=== PATIENT | female | born 1945 | race Caucasian/White ===

== ENCOUNTER 2023-03-13 | Outpatient (REF) | payer MEDICARE, OTHER, SELFPAY ==
--- NOTE | ~2023-03-13 | XR_ITS ---
EXAMINATION: XR hip LT min 2V CLINICAL INFORMATION: Reason for Exam M25.552 - Pain in left hip COMPARISON: None TECHNIQUE: Two views of the hip. FINDINGS: No acute fracture or dislocation. Advanced degenerative changes of the left hip with bony remodeling of the femoral head and acetabulum and complete loss of joint space. Mild degenerative changes of the left sacroiliac joint and pubic symphysis. Calcified phleboliths in the pelvis. Vascular calcification. A 7 mm calcification adjacent to the left femoral neck possibly reflective of loose body. XR/XR hip LT min 2V IMPRESSION: 1. Advanced degenerative changes of the left hip with bony remodeling of the femoral head and acetabulum and complete loss of joint space. 2. A 7 mm calcification adjacent to the left femoral neck possibly reflective of loose body.
== END 2023-03-13 00:01 ==
LOC: HO.HOSX
PROVIDERS: Visit Provider Orthopaedic Surgery
DX: M16.12 Unilateral primary osteoarthritis, left hip (principal); Z79.899 Other long term (current) drug therapy
CPT/HCPCS: 73502; 99202

== ENCOUNTER 2023-03-13 12:07 | Outpatient (AMB) | payer MEDICARE, OTHER, SELFPAY ==
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
[2023-03-13 12:28] VITALS: BMI 35.4
== END 2023-03-13 13:24 | disposition home or self-care (01) ==
PROVIDERS: PCP Internal Medicine; Visit Provider Orthopaedic Surgery
DX: M25.552 Pain in left hip (principal); M16.12 Unilateral primary osteoarthritis, left hip
CPT/HCPCS: 99202

== ENCOUNTER 2023-06-20 08:22 | Outpatient (REF) | payer MEDICARE, OTHER, SELFPAY ==
--- NOTE | ~2023-06-20 | XR_ITS ---
EXAMINATION: XR PELVIS CLINICAL INFORMATION: Pain in left hip COMPARISON: 03/13/2023 TECHNIQUE: AP view of the pelvis. FINDINGS: There are changes of degenerative osteoarthritis in the left hip joint with narrowing of the joint space, subchondral sclerosis and cysts formation. Right hip is unremarkable. There is diffuse osteopenia. Soft tissues are normal. XR/XR pelvis 1-2V IMPRESSION: Advanced changes of degenerative osteoarthritis in the left hip joint.
== END 2023-06-20 08:23 | disposition home or self-care (01) ==
LOC: HO.HOSX 08:22
PROVIDERS: Visit Provider Orthopaedic Surgery
DX: M16.12 Unilateral primary osteoarthritis, left hip (principal)
CPT/HCPCS: 72170; 99212

== ENCOUNTER 2023-06-20 10:31 | Outpatient (AMB) | payer MEDICARE, OTHER, SELFPAY ==
[2023-06-20 10:36] VITALS: BMI 35.4
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
== END 2023-06-20 11:08 | disposition home or self-care (01) ==
PROVIDERS: PCP Internal Medicine; Visit Provider Orthopaedic Surgery
DX: M16.12 Unilateral primary osteoarthritis, left hip (principal)
CPT/HCPCS: 99212

== ENCOUNTER 2023-06-25 06:05 | Inpatient (IN) | payer MEDICARE, OTHER, SELFPAY ==
[2023-06-18 12:30] VITALS: BP 158/74; PULSE 86; RESP 16; O2SAT 98; BMI 36.7
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
[2023-06-18 15:18] LABS: MRSA Nasal PCR NEGATIVE (Negative); SA Nasal PCR NEGATIVE (Negative)
[2023-06-25] VITALS (14 sets, daily range): BP systolic 124–158; BP diastolic 56–98; PULSE 68–102; RESP 16–20; TEMP 36.1–36.8; O2SAT 92–97
--- NOTE | ~2023-06-25 | XR_ITS ---
EXAMINATION: XR PELVIS CLINICAL INFORMATION: Status post left BERE. COMPARISON: None available. TECHNIQUE: AP view of the pelvis. FINDINGS: There is total left hip replacement with prosthetic components in satisfactory alignment. Immediate postoperative changes seen. Minimal loss of right hip joint space is seen. The soft tissues are normal. XR/XR pelvis 1-2V IMPRESSION: Total left hip replacement with immediate postoperative changes noted.
--- OUTSIDE RECORDS SUMMARY | 2023-06-25 06:07 | XMS_ITS | Continuity of Care Document ---
Author Name Unknown Organization [facility] Address [address] [place] [address] [address] [place] [address]- Care Team Providers Care Security Messenger Name Role Phone Maria Elena Rincon MD Primary Care Physician [phone] Encounter [facility] Date(s): 02/16/21 - 03/18/[address] [place], [place] [address] Attending Physician: Admtr, Ar8 Admitting Physician: Admtr, Ar8 Referring Physician: Admtr, Ar8 Allergies, Adverse Reactions, Alerts Substance Reaction Severity Status ciprofloxacin Active oxybutynin Active tetanus toxoid Active Actonel Active Macrobid Active Zocor Active Flagyl Active NKA Resolved Reclast Active Medications acetaminophen 325 mg oral tablet 650 mg, 2, tablet, By Mouth, Every 4 hours, Refills 0, Maintenance, 12/10/20 15:21:00 EDT, Partial fill upon patient request if the prescription is for a schedule II opioid drug. Start Date: 12/10/20 Status: Ordered Centrum Silver By Mouth, Daily, 0 Refills, Maintenance Start Date: 03/16/10 Status: Ordered gabapentin 300 mg oral capsule 300 mg, 1, capsule, By Mouth, 3 times a day, Refills 0, Maintenance, 12/10/20 15:23:00 EDT, Partialfill upon patient request if the prescription is for a schedule II opioid drug. Start Date: 12/10/20 Status: Ordered ibuprofen 400 mg oral tablet 400 mg, 1, tablet, By Mouth, Every 6 hours, with food, # 60 tablet, 0 Refills Start Date: 12/08/08 Stop Date: 12/22/08 Status: Ordered lidocaine 5% topical film Topically, Daily, 0 Refills, Maintenance, 12/10/20 15:21:00 EDT, Patch, Partial fill upon patient request if the prescription is for a schedule II opioid drug. Start Date: 12/10/20 Status: Ordered MiraLax oral powder for reconstitution = 17 Gm, By Mouth, Daily, dissolve in water before taking, # 255 Gm, 0 Refills, Maintenance, 12/10/20 16:49:00 EDT, REC Powder, [facility], Partial fill upon patient request if the prescription is for a schedule II opioid drug., 17 Gm By... Start Date: 12/10/20 Status: Ordered Pepcid 20 mg oral tablet 1 tablet = 20 mg, By Mouth, 2 times a day, # 180 tablet, 0 Refills, Maintenance, 12/08/20 22:40:00 EDT, Tablet, Partial fill upon patient request if the prescription is for a schedule II opioid drug. Start Date: 12/08/20 Status: Ordered predniSONE 1 mg oral tablet 2 tablet = 2 mg, By Mouth, Daily, 0 Refills, Maintenance, 12/10/20 15:23:00 EDT, Tablet, Partial fill upon patient request if the prescription is for a schedule II opioid drug. Start Date: 12/10/20 Status: Ordered Robaxin-750 750 mg oral tablet 2 tablet = 1,500 mg, By Mouth, 4 times a day, # 42 tablet, 0 Refills, Maintenance, 01/04/21 10:12:00 EDT, Tablet, Partial fill upon patient request if the prescription is for a schedule II opioid drug. Start Date: 01/04/21 Stop Date: 01/11/21 Status: Ordered Social History Social History Type Response Smoking Status Former smoker, quit more than 30 days ago; Other: Quit in 2012; entered on: 02/16/21 Sex
--- OUTSIDE RECORDS SUMMARY | 2023-06-25 06:07 | XMS_ITS | Continuity of Care Document ---
Author Name Unknown Organization [facility] ter Address [address] [place] [address]- Care Team Providers Care Dry Chain Offbearer Name Role Phone Maria Elena Rincon MD Primary Care Physician [phone] Encounter [facility] Date(s): 12/04/20 - 01/13/[address] [address] Attending Physician: Maria Elena Rincon MD Admitting Physician: Maria Elena Rincon MD Referring Physician: Maria Elena Rincon MD Allergies, Adverse Reactions, Alerts Substance Reaction Severity [...] opioid drug. Start Date: 12/10/20 Status: Ordered bisacodyl 10 mg rectal suppository 1 supp = 10 mg, Rectally, Once, PRN Constipation, 0 Refills, Maintenance, 12/10/20 15:21:00 EDT, Suppository, Partial fill upon patient request if the prescription is for a schedule II opioid drug. Start Date: 12/10/20 Status: Ordered Centrum Silver By Mouth, Daily, 0 Refills, Maintenance Start Date: 03/16/10 Status: Ordered Dilaudid 2 mg oral tablet 1 tablet = 2 mg, By Mouth, Every 4 hours, PRN as needed for pain, ? dose, 0 Refills, Maintenance, 01/04/21 10:11:00 EDT, Tablet, Partial fill upon patient request if the prescription is for a schedule II opioid drug. Start Date: 01/04/21 Status: Ordered Fleet Enema 19 gm-7 gm rectal enema 1 each, Rectally, Once, PRN for constipation, # 133 mL, 0 Refills, Maintenance, 01/13/21 9:52:00 EDT, Enema, Partial fill upon patient request if the prescription is for a schedule II opioid drug. Start Date: 01/13/21 Status: Ordered gabapentin 300 mg oral capsule [...] Refills, Maintenance, 12/10/20 16:49:00 EDT, REC Powder, [facility] 3, Partial fill upon patient request if [...] Date: 01/04/21 Stop Date: 01/11/21 Status: Ordered Zantac 150 oral tablet 1 tablet = 150 mg, By Mouth, 2 times a day, 0 Refills, Maintenance Start Date: 03/16/10 Status: Ordered
--- OUTSIDE RECORDS SUMMARY | 2023-06-25 06:07 | XMS_ITS | Continuity of Care Document ---
Author Name Unknown Organization [facility] Address [address] [place] [address] [address] [place] [address]- Care Team Providers Care Powered Bridge Specialist Name Role Phone Maria Elena Rincon MD Primary Care Physician Encounter [facility] Date(s): 12/17/20 - 01/16/[address] [place] [address]- Allergies, Adverse Reactions, Alerts Substance Reaction Severity [...] Refills, Maintenance, 12/10/20 16:49:00 EDT, REC Powder, [facility] 3, Partial fill upon patient request if [...]
--- OUTSIDE RECORDS SUMMARY | 2023-06-25 06:07 | XMS_ITS | Continuity of Care Document ---
Author Name Unknown Organization [facility] Address [address] [place] [address] [address] [place] [address]- Care Team Providers Care Spiral Tube Winder Name Role Phone Maria Elena Rincon MD Primary Care Physician Encounter [facility] Date(s): 02/16/21 - 02/23/[address] [place] [address]- Attending Physician: Ayleen Antunez MD Allergies, Adverse Reactions, Alerts Substance Reaction [...] Refills, Maintenance, 12/10/20 16:49:00 EDT, REC Powder, [facility] 3, Partial fill upon patient [...] Date: 01/04/21 Stop Date: 01/11/21 Status: Ordered Vital Signs Most recent to oldest [Reference Range]: 1 Height 161 cm (02/16/21 10:43 AM) Pulse Rate [55-90 bpm] 68 bpm (02/16/21 10:43 AM) Blood Pressure [90-138/55-84 mm Hg] 163/ 68mm Hg *H* (02/16/21 10:43 AM) Temperature [96.8-100.4 DegF] 98.3 DegF (02/16/21 10:43 AM) Blood pressure sites Arm, right (02/16/21 10:43 AM) Temperature Route Temporal (02/16/21 10:43 AM) Social History Social History Type Response Smoking Status Former smoker, quit more than 30 days ago; Other: Quit in 2012; entered on: 02/16/21 Sex
--- OUTSIDE RECORDS SUMMARY | 2023-06-25 06:07 | XMS_ITS | Continuity of Care Document ---
Author Name Unknown Organization [facility] Address [address] [facility] [place] [address]- Care Team Providers Care Electrocardiograph Technician Name Role Phone Jossue Dominguez MD Primary Care Physician Encounter 11/27/22 - 12/04/22 [facility] [address], [facility] [address] [place] [address]- Attending Physician: Jossue Dominguez MD Admitting Physician: Jossue Dominguez MD Referring Physician: Jossue Dominguez MD Allergies, Adverse Reactions, Alerts No Known Allergies Medications acetaminophen 325 mg oral tablet 650 [...] Refills, Maintenance, 12/10/20 16:49:00 EDT, REC Powder, [facility] 3, Partial fill upon patient request [...] Date: 01/04/21 Stop Date: 01/11/21 Status: Ordered Results Radiology Reports * Exam Date Time Procedure Performing Provider Status 11/27/22 9:01 AM MM Digital Mammo Screening Keeley Lozano (Verified) Notes: (MM Digital Mammo Screening) Reason For Exam: ROUTINE SCREENING EXAM RESULT: MM Digital Mammo Screening PROCEDURE: MM Digital Mammo Screening INDICATION: Screening for breast cancer. No known palpable abnormalities. COMPARISON: Multiple priors TECHNIQUE: Full-field digital CC and MLO 3D tomosynthesis images of both breasts were acquired. Computer-aided detection (CAD) was utilized in the interpretation of this study. DENSITY: The breast tissue contains scattered areas of fibroglandular density. FINDINGS: No suspicious masses, suspicious microcalcifications, or areas of architectural distortion are seen in either breast to suggest malignancy. Bilateral vascular calcifications. Several partially calcified oil cysts in the LEFT breast are now seen. IMPRESSION: No mammographic evidence of malignancy. RECOMMENDATION: Routine mammographic screening BI-RADS: 2 (Benign) Lay letter mailed to patient WSN: [id number] Ordering Physician: Jossue Dominguez Dictated By: Kat Chamberlain MD, V Dictated Date/Time: 11/27/22 11:26 am Reviewed By: Kat Chamberlain MD, V Signed By: Kat Chamberlain MD, V Signed Date/Time: 11/27/22 11:26 am Transcribed By: JOYA Technical Asst Date/Time: 11/27/22 11:23 am Birads: Social History Social History Type Response Smoking Status Former smoker, quit more than 30 days ago; Other: Quit in 2012; entered on: 02/16/21 Sex MG Breast Screening * [facility] , CIS S: TRANSCRIBE Kat Chamberlain MD, V: VERIFY Event Display: Result: Authored Date: [id number] PROCEDURE: MM Digital Mammo Screening INDICATION: Screening for breast cancer. No known palpable abnormalities. COMPARISON: Multiple priors TECHNIQUE: Full-field digital CC and MLO 3D tomosynthesis images of both breasts were acquired. Computer-aided detection (CAD) was utilized in the interpretation of this study. DENSITY: The breast tissue contains scattered areas of fibroglandular density. FINDINGS: No suspicious masses, suspicious microcalcifications, or areas of architectural distortion are seen in either breast to suggest malignancy. Bilateral vascular calcifications. Several partially calcified oil cysts in the LEFT breast are now seen. IMPRESSION: No mammographic evidence of malignancy. RECOMMENDATION: Routine mammographic screening BI-RADS: 2 (Benign) Lay letter mailed to patient WSN: [id number] Ordering Physician: Jossue Dominguez Dictated By: Kat Chamberlain MD, V Dictated Date/Time: 11/27/22 11:26 am Reviewed By: Kat Chamberlain MD, V Signed By: Kat Chamberlain MD, V Signed Date/Time: 11/27/22 11:26 am Transcribed By: JOYA Technical Asst Date/Time: 11/27/22 11:23 am Birads: Patient Care team information Care Team Personnel Name: Brisa Santiago RN Position: S RN Member Role: Primary Care Nurse Name: Jossue Dominguez MD Position: [facility] Physician (General Medicine) Member Role: PCP Address: Address: [address] [place] [address]- Care Team Related Persons Name: JUDY CONTRERAS Address: home [address] [place] [address]
--- OUTSIDE RECORDS SUMMARY | 2023-06-25 06:07 | XMS_ITS | Continuity of Care Document ---
Author Name Unknown Organization [facility] Address [address] [place] [address] [address], [address] [place] [address]- Care Team Providers Care Peoplesoft Fscm Developer Name Role Phone Maria Elena Rincon MD Primary Care Physician [phone] [facility] [facility] Date(s): 01/04/21 - 01/11/21 [facility] [address] [place] [address] Drive, [address] [place] [address]- Attending Physician: Not on Staff, Attending MD Allergies, Adverse Reactions, Alerts Substance Reaction [...] opioid drug. Start Date: 01/04/21 Status: Ordered gabapentin 300 mg oral capsule [...] Refills, Maintenance, 12/10/20 16:49:00 EDT, REC Powder, [facility] 3, Partial fill upon patient request [...] Refills, Maintenance Start Date: 03/16/10 Status: Ordered Vital Signs Most recent to oldest [Reference Range]: 1 Height 161 cm (01/04/21 9:57 AM) Weight 90.9 kg (01/04/21 9:57 AM) Body Mass Index [18.5-24.99] 35.07 *>HHI* (01/04/21 9:57 AM)
--- OUTSIDE RECORDS SUMMARY | 2023-06-25 06:07 | XMS_ITS | Continuity of Care Document ---
Author Name Unknown Organization [facility] Address [address] [place] [address] [address], [address] [place] [address]- Care Team Providers Care Weaving Supervisor Name Role Phone Maria Elena Rincon MD Primary Care Physician Encounter [facility] Date(s): 01/04/21 - 02/03/21 [facility] [address] [place] [address] Drive, [address] [place] [address]- Attending Physician: Tracey Marr Admitting Physician: AdmtrTracey Referring Physician: Admtr Ar8 Allergies, Adverse Reactions, Alerts Substance Reaction Severity Status ciprofloxacin Active oxybutynin Active tetanus toxoid Active Macrobid Active Zocor Active Flagyl Active NKA Resolved Reclast Active Actonel Active Medications acetaminophen 325 mg oral tablet [...] Refills, Maintenance, 12/10/20 16:49:00 EDT, REC Powder, [facility] 3, Partial fill upon patient request [...]
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
--- OUTSIDE RECORDS SUMMARY | 2023-06-25 06:07 | XMS_ITS | Continuity of Care Document ---
Author Name Unknown Organization [facility] Address [address] [facility] [place] [address]- Care Team Providers Care Production Tech Name Role Phone Maria Elena Rincon MD Primary Care Physician Encounter 11/14/21 - 11/21/21 [facility] [address], [facility] [address] [place] [address]- Attending Physician: Maria Elena Rincon MD Admitting Physician: Maria Elena Rincon MD Referring Physician: Maria Elena Rincon MD Allergies, Adverse Reactions, Alerts No Known [...] Refills, Maintenance, 12/10/20 16:49:00 EDT, REC Powder, [facility] 3, Partial fill upon patient [...]
--- OUTSIDE RECORDS SUMMARY | 2023-06-25 06:07 | XMS_ITS | Continuity of Care Document ---
Author Name Unknown Organization [facility] Address [address] [place] [address] ve [address] [place] [address]- Care Team Providers Care Cook Cold Meat Name Role Phone Maria Elena Rincon MD Primary Care Physician [phone] Encounter [facility] [place] Date(s): 01/13/21 - 01/20/[address] [place] [address]- Attending Physician: Alfa BARRAGAN, Belén Allergies, Adverse Reactions, Alerts Substance Reaction Severity [...] Refills, Maintenance, 12/10/20 16:49:00 EDT, REC Powder, [facility] 3, Partial fill upon patient request if [...] oldest [Reference Range]: 1 Height 161 cm (01/13/21 9:48 AM) Pulse Rate [55-90 bpm] 76 bpm (01/13/21 9:48 AM) Blood Pressure [90-138/55-84 mm Hg] 142/ 62mm Hg *H* (01/13/21 9:48 AM) Temperature [96.8-100.4 DegF] 97.9 DegF (01/13/21 9:48 AM) Blood pressure sites Arm, left (01/13/21 9:48 AM) Temperature Route Temporal (01/13/21 9:48 AM)
--- OUTSIDE RECORDS SUMMARY | 2023-06-25 06:07 | XMS_ITS | Continuity of Care Document ---
Author Name Unknown Organization [facility] y Address [address] [place] [address] [address], [address] [place] [address]- Care Team Providers Care Cigar Binder Name Role Phone Maria Elena Rincon MD Primary Care Physician Encounter [facility] [place] Date(s): 12/17/20 - 01/16/21 [facility] [address] [place] [address] Drive, [address] [place] [address]- Allergies, Adverse Reactions, Alerts Substance Reaction Severity [...] Refills, Maintenance, 12/10/20 16:49:00 EDT, REC Powder, [facility] 3, Partial fill upon patient request if [...]
--- OUTSIDE RECORDS SUMMARY | 2023-06-25 06:07 | XMS_ITS | Continuity of Care Document ---
Author Name Unknown Organization [facility] ter Address [address] [place] [id number]- Care Team Providers Care Production Engineer Name Role Phone Maria Elena Rincon MD Primary Care Physician Encounter [facility] [place] Date(s): 11/13/20 - 12/23/[address] [id number] Attending Physician: Maria Elena Rincon MD Admitting [...] Refills, Maintenance, 12/10/20 16:49:00 EDT, REC Powder, [facility] 3, Partial fill upon patient request [...]
--- NOTE | 2023-06-25 06:46 | PHA.MEDREC ---
Pharmacy Consult ? Medication Reconciliation Pharmacy has completed the medication reconciliation.MED REC DONE BY NURSING REVIEWED BY PHARMACY
[2023-06-25] MEDS: Lactated Ringers 1,000 ML 100 ML IVCONT ×3 (06:56→22:37)
[2023-06-25] MEDS: HYDROmorphone HCl 0.5 MG/0.5 ML SYRINGE 0.25 MG IVPUSH ×2 (10:47→10:57)
--- NOTE | 2023-06-25 10:48 | PM.OP ---
Brief Operative Note Date of Service: 06/25/23 Pre-op diagnosis: Left hip degenerative joint disease Post-op diagnosis: same Procedure: Left total hip arthroplasty Implants: [place] hybrid total hip arthroplasty with an Accolade C cemented stem size 4 with a 127 degree neck-shaft angle, a Trident II Tritanium press-fit acetabular component with cluster hole size 54, a Biolox ceramic femoral head size 36 with a-2.5 mm neck, polyethylene liner size 36E with a 10 degree lip, cement plug size small, distal centralizer size 11 Surgeon: Thiago Zuniga MD Anesthesia: GETA Was an Streetcar Dispatcher used for this Procedure?: Yes Streetcar Dispatcher: Tere Gauthier Estimated blood loss (mL): 200 Pathology: other (Left femoral head) Condition: stable Disposition: PACU
--- NOTE | 2023-06-25 10:51 | W.PM.OPN ---
Operative Note Operative Note Date of Service: 06/25/23 Narrative: After the patient was identified as Meli Cardona and her left hip was initialed by myself the patient was brought to the operating room where general anesthesia via endotracheal tube was induced by the anesthesiologist in routine fashion. The patient was given 2 g of IV Ancef for infection prophylaxis. The patient was then gently rolled into the lateral position. An axillary roll was put into place. All bony prominences were well padded. The patient's pelvis was held securely with hip bolsters. The patient's left hip region and lower extremity were prepped and draped in sterile fashion. A #10 scalpel blade was then used to make a curvilinear incision centered over the greater trochanter. The subcutaneous tissues were dissected using electrocautery down to the fascia margo. The fascia margo was then split in line with the skin incision using electrocautery. The split in the fascia margo was curved posteriorly along its cephalad aspect to help prevent injury to the innervation of the tensor fascia margo muscle. The patient's leg was gently externally rotated. A lateral Siegel approach was then taken down to the anterior joint capsule. The anterior half of the vastus lateralis was split 1 cm from its insertion and tagged with #2 Ethibond suture. The anterior 1/3 of the gluteus medius incision was then split using electrocautery and tagged with #2 Ethibond suture. An anterior capsulectomy was then performed using electrocautery. The patient's femoral head was then dislocated anteriorly using a hook and gentle traction. Soft tissues were retracted around the femoral neck. The femoral neck cut was then made using a sagittal saw 1 cm proximal to the lesser trochanter. Our attention was then directed to the acetabulum. The labrum was removed using electrocautery. Soft tissue within the cotyloid notch was removed using electrocautery and a rongeur. The femoral head measured to be a size 48 mm. Thus, reaming was begun with a 48 mm reamer. Reaming was performed at 45 degrees of abduction and 20 degrees of anteversion. Reaming was increased incrementally up to a size 54 reamer. At this point we had reached the medial wall of the acetabulum. The acetabulum was irrigated with copious amounts of normal saline solution via pulse lavage. The final size 54 acetabular component was then impacted into place with 45 degrees of abduction and 20 degrees of anteversion. Two cancellous screws were then placed into the superior position. The anterior screw measured 30 mm in length and the posterior screw measured 25 mm in length. The acetabular component was irrigated with copious amounts of normal saline solution via pulse lavage. The polyethylene liner was then impacted into place with the lip in the posterior-superior position. A small sponge was placed into the acetabular component to protect it during preparation of the proximal femur. The patient's leg was then placed into a sterile pouch along the anterior aspect of the surgical suite table. Soft tissues were retracted around the proximal femur. A box cutting osteotome was used to make a groove in the medial aspect of the greater trochanter. Broaching was begun with a size 0 press-fit broach. Broaching was increased up to a size 4 cemented broach. The size 4 broach fit well. The broach was removed. The distal centralizer was measured to be a size 11. A small cement plug was put into place. The intramedullary canal was irrigated with copious amounts of normal saline solution via pulse lavage while the cement was mixed. Once the cement reached a doughy state it was pressurized into the intramedullary canal. The final implant was put into place. Once the cement had hardened a trial size 36 head with a -2.5 mm neck was put into place. The hip was reduced. Leg lengths were clinically equal. The hip was taken through a full range of motion. There was no instability. The hip was once again dislocated and the patient's leg was placed into the sterile pouch. The trial head was removed. The wound was irrigated with copious amounts of normal saline solution via pulse lavage. The final head was impacted in the place. Leg lengths were clinically equal. Hip was taken through a full range of motion. There was no instability. The patient's leg was then placed onto a well-padded Dorsey stand. The wound was once again irrigated. The vastus lateralis and tensor fascia margo tendons were repaired with #2 Ethibond ilomat-ek-kpjea interrupted suture. The wound was once again irrigated. The fascia margo was closed with #2 Ethibond wepgoj-bl-jwwgl interrupted suture as well as #1 Vicryl ibnofc-oc-wlefb interrupted suture. The wound was once again irrigated. The subcutaneous tissues were closed with 0 Vicryl and 2-0 Vicryl interrupted suture. The skin was closed with skin jovanni. Dry sterile dressing was placed over the incision. The patient was gently rolled into the supine position. The patient was awoken and extubated in the operating room. The patient was transferred to the recovery room in stable condition.
[2023-06-25] MEDS: oxyCODONE HCl Immed Release 5 MG TABLET PO (10:55)
--- NOTE | 2023-06-25 11:57 | PHA.MEDREC ---
Pharmacy Consult ? Medication Reconciliation Pharmacy has reviewed the medication reconciliation based on pharmacy claim history.
[2023-06-25] MEDS: oxyCODONE HCl ER 10 MG TAB.ER.12H PO ×2 (12:23→20:33)
[2023-06-25] MEDS: oxyCODONE HCl Immed Release 5 MG TABLET 10 MG PO ×2 (12:23→17:31)
[2023-06-25] MEDS: Famotidine 20 MG TABLET PO ×2 (12:23→20:33)
[2023-06-25] MEDS: Gabapentin 300 MG CAPSULE PO ×3 (12:23→20:33)
[2023-06-25] MEDS: Cholecalciferol (Vitamin D3) 25 MCG TABLET 50 MCG PO (12:23)
[2023-06-25] MEDS: Ascorbic Acid 500 MG TABLET 1000 MG PO (12:23)
[2023-06-25] MEDS: Celecoxib 200 MG CAPSULE PO ×2 (12:23→20:34)
[2023-06-25] MEDS: Docusate Sodium 100 MG CAPSULE PO ×2 (12:23→20:33)
[2023-06-25] MEDS: Multivitamin TABLET 1 TAB PO (12:24)
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
[2023-06-25] MEDS: ceFAZolin Sodium/Dextrose,Iso 2 GM/50 ML PIGGYBACK IV ×2 (15:21→23:32)
[2023-06-25] MEDS: Acetaminophen 325 MG TABLET 650 MG PO (17:32)
[2023-06-25] MEDS: Aspirin 325 MG TABLET PO (20:32)
[2023-06-25] MEDS: diphenhydrAMINE HCL 25 MG CAPSULE 50 MG PO (20:34)
[2023-06-26] MEDS: oxyCODONE HCl Immed Release 5 MG TABLET 10 MG PO (03:42)
[2023-06-26 06:37] LABS: MANUAL DIFF FLAG NO
[2023-06-26 06:44] LABS: Basophils Percent Auto 0.2 % (0-2); Hematocrit 31.7 % (37.0-47.0); Hemoglobin 10.1 g/dl (12.0-16.0); Imm Gran Abs Auto 0.03 X10*3/uL (0.00-0.03); Imm Gran Pct Auto 0.3 % (0.0-0.4); Lymphocytes Absolute Auto 1.3 X10*3/uL (1.2-4.9); Lymphocytes Percent Auto 14.2 % (20-40); Mean Corpuscular HGB Conc 31.9 g/dl (31.0-35.0); Mean Corpuscular Hemoglobin 28.2 pg (27.0-33.0); Mean Corpuscular Volume 88.5 fL (80.0-98.0); Mean Platelet Volume 9.4 fL (9.4-12.3); Monocytes Absolute Auto 0.8 X10*3/uL (0.1-1.2); Monocytes Percent Auto 8.3 % (2-11); Platelet Count 200 X10*3/uL (160-400); Red Blood Count 3.58 X10*6/uL (4.20-5.50); Red Cell Distribution Width 13.9 % (11.0-16.0)
[2023-06-26 06:56] LABS: Anion Gap 11 (12-20); Blood Urea Nitrogen 10 mg/dL (9-16); Calcium 8.6 mg/dL (8.4-10.2); Carbon Dioxide 28 mmol/L (22-29); Chloride 104 mmol/L (96-108); Creatinine Clr Calc Pharmacy 65.7; Estimated Glomerular Filt Rate > 60; Glucose Fasting 114 mg/dL (60-99); Potassium 4.2 mmol/L (3.3-5.1); Sodium 139 mmol/L (135-145)
[2023-06-26 07:21] VITALS: BP 116/76; PULSE 82; RESP 20; TEMP 36.3; O2SAT 97
[2023-06-26] MEDS: HYDROmorphone HCl 0.5 MG/0.5 ML SYRINGE IVPUSH ×3 (07:31→18:34)
[2023-06-26] MEDS: ceFAZolin Sodium/Dextrose,Iso 2 GM/50 ML PIGGYBACK IV (07:32)
[2023-06-26] MEDS: Lactated Ringers 1,000 ML 100 ML IVCONT (07:33)
[2023-06-26] MEDS: Gabapentin 300 MG CAPSULE PO ×3 (08:29→20:05)
[2023-06-26] MEDS: oxyCODONE HCl ER 10 MG TAB.ER.12H PO ×2 (08:29→20:05)
[2023-06-26] MEDS: Multivitamin TABLET 1 TAB PO (08:29)
[2023-06-26] MEDS: Famotidine 20 MG TABLET PO ×2 (08:29→20:04)
[2023-06-26] MEDS: Aspirin 325 MG TABLET PO ×2 (08:29→20:04)
[2023-06-26] MEDS: Ascorbic Acid 500 MG TABLET 1000 MG PO (08:29)
[2023-06-26] MEDS: Cholecalciferol (Vitamin D3) 25 MCG TABLET 50 MCG PO (08:29)
[2023-06-26 08:30] VITALS: BP 116/76; PULSE 82; O2SAT 97
[2023-06-26] MEDS: Docusate Sodium 100 MG CAPSULE PO (08:30)
[2023-06-26] MEDS: Celecoxib 200 MG CAPSULE PO ×2 (08:30→20:04)
--- NOTE | 2023-06-26 09:29 | HO.POSTANES ---
Post Anesthesia Evaluation Post Anesthesia Evaluation Date of Service: 06/26/23 Vital Signs: Vital Signs Temp Pulse Resp BP Pulse Ox O2 Del Method 06/26/23 08:30 82 116/76 97 06/26/23 07:21 97.3 F 82 20 116/76 97 Room Air 06/25/23 23:48 97.8 F 98 16 139/59 L 93 Room Air Anesthesia: General Endotracheal-GETA Mental Status: Awake Pain Control: Satisfactory Nausea/Vomiting: None Hydration: Adequate Anesthesia-Related Issues: No Anes. Related Issues
[2023-06-26] MEDS: Acetaminophen 325 MG TABLET 650 MG PO ×2 (09:44→20:07)
--- NOTE | 2023-06-26 09:50 | P.PNOP_ITS ---
Subjective Subjective Date of Service: 06/26/23 Interval history: Pod 1 s/p LT BERE no overnight events resting in bed states her pain is more tolerable this morning denies sob, cp, palpitations Physical Exam Vital Signs: Vital Signs: Last Vital Signs Temp 97.3 F 06/26/23 07:21 Pulse 82 06/26/23 08:30 Resp 20 06/26/23 07:21 BP 116/76 06/26/23 08:30 Pulse Ox 97 06/26/23 08:30 O2 Del Method Room Air 06/26/23 07:21 O2 Flow Rate 2 06/25/23 11:45 BMI result Body Mass Index 36.7 Const: General: cooperative, healthy appearing and no acute distress Resp: Effort & Inspection: normal respiratory effort and able to speak in complete sentences Cardio: Rate: regular rate Peripheral pulses: Peripheral pulses 2+ throughout GI: Palpation (GI): Soft to palpation Skin: General skin exam: no rashes or lesions noted Extrem: Other: left hip incision clean dry and intact. Manan intact. No erythema or effusion. Calf supple nontender. Neurovascularly intact. Procedures Date of Service Date of Service: 06/26/23 Progress Note: A&P Assessment and plan (1) History of total left hip replacement: Status: Acute Assessment and Plan: * Continue pain mgmnt * Begin Aspirin for dvt ppx * begin PT for LT BERE * Dispo planning-Pending PT eval, pain mgmnt Need for continued inpatient stay: PT eval home vs rehab placement Time Spent With Patient Time: Total time managing care of this patient today ____ minutes. Quality Stroke Does the patient have a stroke diagnosis?: No VTE Prior VTE?: No VTE Risk Level:: Surgical - very high VTE Device Contraindication: N/A - Device Ordered VTE Drug Contraindication: N/A - Med Ordered
--- NOTE | 2023-06-26 12:11 | MHC.CM.PN ---
Interview conducted w/Pt and ; Pt lives w/ in their home, no prior services, owns RW, cane and BSC. Pt still drives where she needs to go. Her bathroom and bedroom are both upstairs on second floor. Pt lives in [facility]; will have to locate VNA that services this area. D/C plan is home w/ via , w/in-home PT. CM to follow.
[2023-06-26] MEDS: ondansetron HCL 4 MG/2 ML VIAL IVPUSH (12:50)
[2023-06-26 13:14] VITALS: BP 116/76; PULSE 82; O2SAT 97
[2023-06-26 15:28] VITALS: BP 127/61; PULSE 88; RESP 20; TEMP 36.2; O2SAT 95
[2023-06-26 19:35] VITALS: BP 131/60; PULSE 90; RESP 18; TEMP 36.4; O2SAT 94
[2023-06-26] MEDS: diphenhydrAMINE HCL 25 MG CAPSULE 50 MG PO (20:04)
[2023-06-26] MEDS: 0.9 % Sodium Chloride Flush 3 ML SYRINGE IVFLUSH (20:07)
[2023-06-27 03:46] VITALS: BP 118/55; PULSE 81; RESP 17; TEMP 37.1; O2SAT 95
[2023-06-27 06:44] LABS: MANUAL DIFF FLAG NO
[2023-06-27 06:48] LABS: Basophils Absolute Auto 0.1 X10*3/uL (0.0-0.2); Basophils Percent Auto 0.6 % (0-2); Eosinophils Absolute Auto 0.2 X10*3/uL (0.0-0.4); Eosinophils Percent Auto 1.9 % (0-4); Hematocrit 31.1 % (37.0-47.0); Hemoglobin 9.8 g/dl (12.0-16.0); Imm Gran Abs Auto 0.03 X10*3/uL (0.00-0.03); Imm Gran Pct Auto 0.4 % (0.0-0.4); Lymphocytes Absolute Auto 1.3 X10*3/uL (1.2-4.9); Lymphocytes Percent Auto 14.9 % (20-40); Mean Corpuscular HGB Conc 31.5 g/dl (31.0-35.0); Mean Corpuscular Hemoglobin 28.8 pg (27.0-33.0); Mean Corpuscular Volume 91.5 fL (80.0-98.0); Mean Platelet Volume 9.6 fL (9.4-12.3); Monocytes Absolute Auto 0.8 X10*3/uL (0.1-1.2); Monocytes Percent Auto 9.4 % (2-11); Neutrophils Absolute Auto 6.2 x10*3/uL (2.0-8.3); Neutrophils Percent Auto 72.8 % (45-73); Platelet Count 177 X10*3/uL (160-400); Red Cell Distribution Width 14.4 % (11.0-16.0); White Blood Count 8.5 X10*3/uL (4.8-10.8)
[2023-06-27 07:01] VITALS: BP 115/56; PULSE 88; RESP 20; TEMP 37; O2SAT 95
[2023-06-27 07:06] LABS: Anion Gap 11 (12-20); Blood Urea Nitrogen 11 mg/dL (9-16); Calcium 8.7 mg/dL (8.4-10.2); Carbon Dioxide 28 mmol/L (22-29); Chloride 105 mmol/L (96-108); Creatinine Clr Calc Pharmacy 69.4; Estimated Glomerular Filt Rate > 60; Glucose Fasting 110 mg/dL (60-99); Potassium 4.1 mmol/L (3.3-5.1); Sodium 140 mmol/L (135-145)
[2023-06-27] MEDS: Acetaminophen 325 MG TABLET 650 MG PO (07:09)
[2023-06-27] MEDS: 0.9 % Sodium Chloride Flush 3 ML SYRINGE IVFLUSH (07:11)
--- NOTE | 2023-06-27 07:19 | PM.DS ---
DS: Providers Provider Date of admission: 06/25/23 06:05 Primary care physician: Jossue Benjamin MD Consults: 06/25/23 11:43 Consult to Hospitalist Routine Comment: Consulting Provider: Hospitalist Reason For Exam: Routine Medical Management DS: Diagnosis Discharge Diagnosis (1) History of total left hip replacement: Status: Acute DS: Summary Hospital Course Hospital Course: The patient underwent a successful left total hip arthroplasty, they were transferred to PACU and then to the floor to recover. During their stay, their vitals were stable, afebrile at 98.6. Labs were unremarkable, H/H 9.8/31.1. POD 1 they were started on Aspirin 325mg po bid for DVT ppx, they also received Physical Therapy services twice a day. Prior to discharge, their dressing was changed, incision clean dry and intact, new Aquacel dressing applied and the plan was to be discharged home with VNA services. Time Attestation Discharge coordination time: Less than 30 minutes Physical Exam Vital Signs: Vital Signs: Last Vital Signs Temp 98.6 F 06/27/23 07:01 Pulse 88 06/27/23 07:01 Resp 20 06/27/23 07:01 BP 115/56 L 06/27/23 07:01 Pulse Ox 95 06/27/23 07:01 O2 Del Method Room Air 06/27/23 07:01 O2 Flow Rate 2 06/25/23 11:45 BMI result Body Mass Index 36.7 DS: Data Data Completed and Pending Completed studies during hospitalization [Text1]: Pending at discharge 06/25/23 08:37 Surgical [PTH] Routine Labs on day of discharge: Laboratory Results - last 24 hr 06/27/23 06:35 WBC 8.5 RBC 3.40 L Hgb 9.8 L Hct 31.1 L MCV 91.5 MCH 28.8 MCHC 31.5 RDW 14.4 Plt Count 177 MPV 9.6 Immature Gran % (Auto) 0.4 Neut % (Auto) 72.8 Lymph % (Auto) 14.9 L [place] % (Auto) 9.4 Eos % (Auto) 1.9 Baso % (Auto) 0.6 Lymph # (Auto) 1.3 [place] # (Auto) 0.8 Eos # (Auto) 0.2 Baso # (Auto) 0.1 Abs Immat Gran (auto) 0.03 Absolute Neuts (auto) 6.2 Absolute Nucleated RBC 0.000 Nucleated RBC % (auto) 0.0 Sodium 140 Potassium 4.1 Chloride 105 Carbon Dioxide 28 Anion Gap 11 L BUN 11 Creatinine 0.71 Estim Creat Clear Calc 69.4 Estimated GFR > 60 Fasting Glucose 110 H Calcium 8.7 Discharge Plan Discharge Referrals: Jossue Benjamin MD [Primary Care Provider] - 1 Week Discharge Medications: No Action multivitamin Tablet 1 tab PO DAILY ascorbic acid (vitamin C) [Vitamin C] 1,000 mg Tablet 1,000 mg PO DAILY famotidine [Pepcid] 20 mg Tablet 20 mg PO BID diphenhydramine HCl [Benadryl] 25 mg Capsule 50 mg PO BEDTIME Patient Comments: takes every night vitamin B complex Tablet 1 tab PO DAILY cranberry 500 mg Capsule 500 mg PO DAILY Rx Instructions: administer with meals Lutein Vison Formula Capsule 1 cap PO DAILY cholecalciferol (vitamin D3) [Vitamin D3] 50 mcg (2,000 unit) Tablet 50 mcg PO DAILY Tumersaid [phone] mg Tablet 1 tab PO DAILY oxycodone 5 mg tablet 5 mg PO 5XD PRN (Reason: Pain) gabapentin 300 mg capsule 300 mg PO TID diclofenac sodium 1 % gel 2 g topical QID PRN (Reason: Pain) Rx Instructions: apply to single elbow, wrist or hand; for hand includes palm/fingers/back of hand
--- NOTE | 2023-06-27 07:49 | P.PNOP_ITS ---
Subjective Subjective Date of Service: 06/27/23 Interval history: Pod 2 s/p LT BERE no overnight events resting in bed states her pain is more tolerable this morning denies sob, cp, palpitations Physical Exam Vital Signs: Vital Signs: Last Vital Signs Temp 98.6 F 06/27/23 07:01 Pulse 88 06/27/23 07:01 Resp 20 06/27/23 07:01 BP 115/56 L 06/27/23 07:01 Pulse Ox 95 06/27/23 07:01 O2 Del Method Room Air 06/27/23 07:01 O2 Flow Rate 2 06/25/23 11:45 BMI result Body Mass Index 36.7 Const: General: cooperative, healthy appearing and no acute distress Resp: Effort & Inspection: normal respiratory effort and able to speak in complete sentences Cardio: Rate: regular rate Peripheral pulses: Peripheral pulses 2+ throughout GI: Palpation (GI): Soft to palpation Skin: General skin exam: no rashes or lesions noted Extrem: Other: left hip incision clean dry and intact. [place] intact. No erythema or effusion. Calf supple nontender. Neurovascularly intact. Procedures Date of Service Date of Service: 06/27/23 Progress Note: A&P Assessment and plan (1) History of total left hip replacement: Status: Acute Assessment and Plan: * Continue pain mgmnt * Begin Aspirin for dvt ppx * begin PT for LT BERE * Dispo planning-Pending PT eval, pain mgmnt Need for continued inpatient stay: PT eval home vs rehab placement, Pain management (2) Arthritis of left hip: Status: Acute Time Spent With Patient Time: Total time managing care of this patient today ____ minutes. Quality Stroke Does the patient have a stroke diagnosis?: No VTE Prior VTE?: No VTE Risk Level:: Surgical - very high VTE Device Contraindication: N/A - Device Ordered VTE Drug Contraindication: N/A - Med Ordered
[2023-06-27] MEDS: Ascorbic Acid 500 MG TABLET 1000 MG PO (08:03)
[2023-06-27] MEDS: oxyCODONE HCl ER 10 MG TAB.ER.12H PO (08:03)
[2023-06-27] MEDS: Celecoxib 200 MG CAPSULE PO (08:03)
[2023-06-27] MEDS: Famotidine 20 MG TABLET PO (08:03)
[2023-06-27] MEDS: Gabapentin 300 MG CAPSULE PO (08:04)
[2023-06-27] MEDS: Aspirin 325 MG TABLET PO (08:04)
[2023-06-27] MEDS: Cholecalciferol (Vitamin D3) 25 MCG TABLET 50 MCG PO (08:04)
[2023-06-27] MEDS: Multivitamin TABLET 1 TAB PO (08:04)
[2023-06-27 09:57] VITALS: BP 115/56; PULSE 88; O2SAT 95
--- NOTE | 2023-06-27 10:15 | P.DS_ITS ---
DS: Providers Provider Date of Service: 06/27/23 Date of admission: 06/25/23 06:05 Primary care physician: Jossue Benjamin MD Consults: 06/25/23 11:43 Consult to Hospitalist Routine Comment: Consulting Provider: Hospitalist Reason For Exam: Routine Medical Management DS: Diagnosis Discharge Diagnosis (1) History of total left hip replacement: Status: Acute (2) Arthritis of left hip: Status: Acute DS: Summary Hospital Course Hospital Course: The patient underwent a successful left total hip arthroplasty, they were transferred to PACU and then to the floor to recover. During their stay, their vitals were stable, afebrile at 98.6. Labs were unremarkable, H/H 9.8/31.1. POD 0 they were started on Aspirin 325mg po bid for DVT ppx, they also received Physical Therapy services twice a day. Prior to discharge, their dressing was clean dry and intact, new Aquacel dressing applied and the plan was to be discharged home with VNA services. Time Attestation Discharge coordination time: Less than 30 minutes Quality: Safe Use of Opioids Does Pt have an Active Cancer Diagnosis on the Problem List?: No Quality: Stroke Does the patient have a stroke diagnosis?: No Physical Exam Vital Signs: Vital Signs: Last Vital Signs Temp 98.6 F 06/27/23 07:01 Pulse 88 06/27/23 09:57 Resp 20 06/27/23 07:01 BP 115/56 L 06/27/23 09:57 Pulse Ox 95 06/27/23 09:57 O2 Del Method Room Air 06/27/23 07:01 O2 Flow Rate 2 06/25/23 11:45 BMI result Body Mass Index 36.7 Const: General: cooperative, healthy appearing and no acute distress Resp: Effort & Inspection: normal respiratory effort and able to speak in complete sentences Cardio: Rate: regular rate Peripheral pulses: Peripheral pulses 2+ throughout GI: Palpation (GI): Soft to palpation Skin: General skin exam: no rashes or lesions noted Lesions: no lesions Rashes: no rashes Extrem: Other: left hip incision clean dry and intact. [place] intact. No erythema or effusion. Calf supple nontender. Neurovascularly intact. DS: Data Data Completed and Pending Completed studies during hospitalization [Text1]: Pending at discharge 06/25/23 08:37 Surgical [PTH] Routine Labs on day of discharge: Laboratory Results - last 24 hr 06/27/23 06:35 WBC 8.5 RBC 3.40 L Hgb 9.8 L Hct 31.1 L MCV 91.5 MCH 28.8 MCHC 31.5 RDW 14.4 Plt Count 177 MPV 9.6 Immature Gran % (Auto) 0.4 Neut % (Auto) 72.8 Lymph % (Auto) 14.9 L [place] % (Auto) 9.4 Eos % (Auto) 1.9 Baso % (Auto) 0.6 Lymph # (Auto) 1.3 [place] # (Auto) 0.8 Eos # (Auto) 0.2 Baso # (Auto) 0.1 Abs Immat Gran (auto) 0.03 Absolute Neuts (auto) 6.2 Absolute Nucleated RBC 0.000 Nucleated RBC % (auto) 0.0 Sodium 140 Potassium 4.1 Chloride 105 Carbon Dioxide 28 Anion Gap 11 L BUN 11 Creatinine 0.71 Estim Creat Clear Calc 69.4 Estimated GFR > 60 Fasting Glucose 110 H Calcium 8.7 Discharge Plan Discharge Anticipated Discharge Date/Time: 06/27/23 10:11 Patient Disposition: Home Health Service Discharge Diagnosis: s/p LTHA Referrals: Tere Gauthier PA-C [Physician Technology Project Manager] - 07/12/23 1:15 pm Discharge Medications: New celecoxib 200 mg Capsule 200 mg PO BID 30 Days Qty: 60 0RF acetaminophen 325 mg Tablet 650 mg PO Q6H PRN (Reason: Pain, Mild (Pain Scale 1-3)) 30 Days Qty: 240 0RF aspirin 325 mg Tablet 325 mg PO Q12H 42 Days Qty: 84 0RF docusate sodium 100 mg Capsule 100 mg PO BID 30 Days Qty: 60 0RF oxycodone 5 mg Tablet 5 mg PO Q4H PRN (Reason: Pain, Moderate(Pain Scale 4-6)) 7 Days Qty: 42 0RF Rx Instructions: Partial Fill upon patient request. Continued multivitamin Tablet 1 tab PO DAILY ascorbic acid (vitamin C) [Vitamin C] 1,000 mg Tablet 1,000 mg PO DAILY famotidine [Pepcid] 20 mg Tablet 20 mg PO BID diphenhydramine HCl [Benadryl] 25 mg Capsule 50 mg PO BEDTIME Patient Comments: takes every night vitamin B complex Tablet 1 tab PO DAILY cranberry 500 mg Capsule 500 mg PO DAILY Rx Instructions: administer with meals vit C-vit Q-swzmwa-tmohjfbk Capsule 1 cap PO DAILY cholecalciferol (vitamin D3) [Vitamin D3] 50 mcg (2,000 unit) Tablet 50 mcg PO DAILY [place] [id number] mg Tablet 1 tab PO DAILY oxycodone 5 mg tablet 5 mg PO 5XD PRN (Reason: Pain) gabapentin 300 mg capsule 300 mg PO TID diclofenac sodium 1 % gel 2 g topical QID PRN (Reason: Pain) Rx Instructions: apply to single elbow, wrist or hand; for hand includes palm/fingers/back of hand Discharge Orders: Discharge Order (Routine); Ordered 06/27/23 Ordered By: Tere Gauthier Diet: Advance to usual diet Activity on Discharge: Use cane or walker Stand Alone Forms: Patient Portal Discharge page Care Plan Goals: Restore fxn to left hip Health Concerns: None Plan of Treatment: Physical Therapy for total hip arthroplasty: no precautions, gait training, ROM, strength Limit stair climbing No showering, no tub bath-keep dressing clean, dry and intact No driving x6 weeks Continue Aspirin 325mg tabs twice a day x 4 weeks Follow up with [facility] in 2 weeks Assessment: stable for d/c
--- NOTE | 2023-06-27 10:17 | P.F2F_ITS ---
Service Date Service Date: 06/27/23 Encounter Date of encounter: 06/27/23 Reasons for Services Signs and symptoms assessed: Pt. is considered homebound due to recent surgery. Unable to drive, poor balance, poor gait mechanics. S/p LTHA. Reason for physical therapy: home safety and mobility, therapeutic exercises, restore joint function, gait/transfer training, assess need for DME and ADL training Reason for occupational therapy: home safety and mobility, therapeutic exercises, restore joint function, gait/transfer training, assess need for DME and ADL training Homebound: Leaving the home is medically contraindicated at this time without the asist of a device and/or another person due th the listed conditions above and below. Reason homebound: unsteady gait / fall risk, leg weakness, pain with ambulation, pain with transfers and unable to drive Certification: Based on the above findings, I certify that this patient is confined to the home and needs intermittent half-way care, physical therapy and/or speech therapy, or continues to need occupational therapy. The patient is under my care, and I have initiated the establishment of the plan of care. The patient will be followed by a physician who will periodically review the plan of care. Time Spent With Patient Time: Total time managing care of this patient today ____ minutes.
--- NOTE | 2023-06-27 11:49 | MHC.CM.PN ---
Addendum entered by Sanjana Barboza 06/27/23 11:51: [facility] HAS ACCEPTED PTS REFERRAL FOR PT AND OT SERVICES CM CALLED PT ON HER CELL [phone] AND PROVIDED THE ABOVE INFORMATION Original Note: CM MET WITH PT TO INFORM HER A VNA HAD NOT YET BEEN SECURED FOR DC SHE REPORTS SHE HAS BEEN THROUGH THIS BEFORE AND WAS UNABLE TO GET ONE AT THAT TIME SHE SAYS SHE HAS A PRINT OUT OF THE EXERCISES AND WILL DO THEM ON HER OWN CM INFORMED HER SHE WOULD BE CONTACTED IF ONE WAS SECURED PTS WILL TRANSPORT HOME
== END 2023-06-27 11:37 | disposition home health service (06) | DRG 470 ==
LOC: HO.SSSA 06:06 → HO.S3 10:25
PROVIDERS: Physician Assistant; Admitting Provider Orthopaedic Surgery; PCP Internal Medicine; Visit Provider Orthopaedic Surgery
PROC: 0SRB0J9 Replacement of Left Hip Joint with Synthetic Substitute, Cemented, Open Approach (ICD-10-PCS; CPT 27130; principal; 2023-06-25 07:30)
DX: M16.12 Unilateral primary osteoarthritis, left hip (principal); K21.9 Gastro-esophageal reflux disease without esophagitis; M48.00 Spinal stenosis, site unspecified; R09.02 Hypoxemia; M35.3 Polymyalgia rheumatica; Z87.891 Personal history of nicotine dependence; Z79.899 Other long term (current) drug therapy
CPT/HCPCS: 27130; 36415; 72170; 80048; 85025; 86850; 86900; 86901; 87640; 87641; 88304; 88311; 97110; 97116; 97162; 97165; 97535; C1713; C1776; J0131; J0690; J1100; J1170; J1885; J2405; J2704; J3010; J3370; J7120

== ENCOUNTER → 2023-06-25 06:05 | Outpatient (BNV) | payer MEDICARE, OTHER, SELFPAY | PROVIDERS: Admitting Provider Orthopaedic Surgery; PCP Internal Medicine; Visit Provider Orthopaedic Surgery | DX: Z47.1 Aftercare following joint replacement surgery (principal); Z96.642 Presence of left artificial hip joint; M16.12 Unilateral primary osteoarthritis, left hip | CPT/HCPCS: 27130; 99024; G0180 ==

== ENCOUNTER → 2023-06-25 06:05 | Outpatient (BNV) | payer MEDICARE, OTHER, SELFPAY | PROVIDERS: Admitting Provider Orthopaedic Surgery; PCP Internal Medicine; Visit Provider Physician Assistant | DX: M16.12 Unilateral primary osteoarthritis, left hip (principal) | CPT/HCPCS: 99222 ==

== ENCOUNTER 2023-07-12 09:29 | Outpatient (REF) | payer MEDICARE, OTHER, SELFPAY ==
--- NOTE | ~2023-07-12 | XR_ITS ---
EXAMINATION: XR PELVIS CLINICAL INFORMATION: Pain and unspecified hip. COMPARISON: 06/25/2023, 06/20/2023, 03/13/2023 TECHNIQUE: 2 AP views of the pelvis. FINDINGS: The bones are diffusely demineralized. Degenerative changes in the imaged lower lumbar spine. Moderate degenerative changes noted in the bilateral sacroiliac joints. Degenerative changes in the right hip with axial and medial joint space narrowing. Redemonstration of left total hip arthroplasty. Hardware appears intact with satisfactory alignment on AP views provided. XR/XR pelvis 1-2V IMPRESSION: 1. Moderate degenerative changes in the right hip. 2. Moderate degenerative changes in the bilateral sacroiliac joints. 3. Status post left total hip arthroplasty. Hardware appears intact. Correlation with clinical exam recommended to determine further management. If there is concern for fracture or other underlying pathology, MRI could be obtained for further evaluation.
== END 2023-07-12 09:30 | disposition home or self-care (01) ==
LOC: HO.HOSX 09:29
PROVIDERS: Visit Provider Physician Assistant
DX: Z47.1 Aftercare following joint replacement surgery (principal); Z96.642 Presence of left artificial hip joint
CPT/HCPCS: 72170; 99212

== ENCOUNTER 2023-07-12 13:00 | Outpatient (AMB) | payer MEDICARE, OTHER, SELFPAY ==
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
== END 2023-07-12 13:46 | disposition home or self-care (01) ==
PROVIDERS: PCP Internal Medicine; Visit Provider Physician Assistant
DX: Z96.642 Presence of left artificial hip joint (principal)
CPT/HCPCS: 99024

== ENCOUNTER 2023-08-23 08:36 | Outpatient (AMB) | payer MEDICARE, OTHER, SELFPAY ==
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
== END 2023-08-23 09:02 | disposition home or self-care (01) ==
PROVIDERS: PCP Internal Medicine; Visit Provider Orthopaedic Surgery
DX: Z96.642 Presence of left artificial hip joint (principal)
CPT/HCPCS: 99024

== ENCOUNTER → 2023-08-23 08:36 | Outpatient (BNVA) | payer MEDICARE, OTHER, SELFPAY | PROVIDERS: PCP Internal Medicine; Visit Provider Orthopaedic Surgery | DX: Z47.1 Aftercare following joint replacement surgery (principal); Z96.642 Presence of left artificial hip joint | CPT/HCPCS: 99212 ==

== ENCOUNTER 2023-11-22 09:29 | Outpatient (AMB) | payer MEDICARE, OTHER, SELFPAY ==
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
== END 2023-11-22 10:13 | disposition home or self-care (01) ==
PROVIDERS: PCP Internal Medicine; Visit Provider Orthopaedic Surgery
DX: M25.552 Pain in left hip (principal)
CPT/HCPCS: 99213

== ENCOUNTER 2023-11-22 10:10 | Outpatient (REF) | payer MEDICARE, OTHER, SELFPAY ==
--- NOTE | ~2023-11-22 | XR_ITS ---
EXAMINATION: XR HIP, LEFT WITH AP PELVIS CLINICAL INFORMATION: Left artificial hip joint. COMPARISON: Prior radiographs, most recently 07/12/2023. TECHNIQUE: A frog frog-leg lateral view of the left hip is submitted, together with frontal views of the pelvis. FINDINGS: Prosthetic components of the left total hip arthroplasty are appropriately aligned without periprosthetic fracture or abnormal lucency. No component migration. No unusual degenerative change is seen of the right hip, the right femoral head is smooth. No dislocation is seen. The sacral iliac joints are symmetric and well-maintained. The pubic symphysis is intact. There are pelvic phleboliths. The soft tissues are normal. XR/XR hip LT min 2V IMPRESSION: Appropriate alignment of the left total hip arthroplasty without surrounding abnormalities.
== END 2023-11-22 10:11 | disposition home or self-care (01) ==
LOC: HO.HOSX 10:10
PROVIDERS: Visit Provider Orthopaedic Surgery
DX: T84.84XA Pain due to internal orthopedic prosthetic devices, implants and grafts, initial encounter (principal); Z96.642 Presence of left artificial hip joint
CPT/HCPCS: 73502; 99212

== ENCOUNTER 2024-02-20 09:36 | Outpatient (REF) | payer MEDICARE, OTHER, SELFPAY | END 2024-02-20 09:37 | disposition home or self-care (01) | LOC: HO.HOSX 09:36 | PROVIDERS: Visit Provider Orthopaedic Surgery | DX: Z13.89 Encounter for screening for other disorder (principal) ==

== ENCOUNTER 2024-02-21 09:12 | Outpatient (REF) | payer MEDICARE, OTHER, SELFPAY ==
--- NOTE | ~2024-02-21 | XR_ITS ---
EXAMINATION: XR HIP, LEFT CLINICAL INFORMATION: Left hip pain COMPARISON: Radiographs 11/22/2023 TECHNIQUE: AP radiograph of the pelvis and frog-lateral view of the left hip. FINDINGS: The left total hip arthroplasty components are in stable position and alignment without evidence of loosening or fracture. Moderate osteoarthritis of the right hip. XR/XR hip LT min 2V IMPRESSION: Stable appearance of the left total hip arthroplasty. No acute abnormality.
== END 2024-02-21 09:13 | disposition home or self-care (01) ==
LOC: HO.HOSX 09:12
PROVIDERS: Visit Provider Orthopaedic Surgery
DX: M25.552 Pain in left hip (principal); Z96.642 Presence of left artificial hip joint
CPT/HCPCS: 73502; 99212

== ENCOUNTER 2024-02-21 09:36 | Outpatient (AMB) | payer MEDICARE, OTHER, SELFPAY ==
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
[2024-02-21 09:47] VITALS: BMI 35.7
== END 2024-02-21 10:07 | disposition home or self-care (01) ==
PROVIDERS: PCP Internal Medicine; Visit Provider Orthopaedic Surgery
DX: Z47.1 Aftercare following joint replacement surgery (principal); Z96.642 Presence of left artificial hip joint
CPT/HCPCS: 99213

== ENCOUNTER 2024-11-04 09:13 | Outpatient (REF) | payer MEDICARE, OTHER, SELFPAY ==
--- NOTE | ~2024-11-04 | XR_ITS ---
EXAMINATION: XR HIP, LEFT CLINICAL INFORMATION: M25.552 - Pain in left hip COMPARISON: 02/21/2024, 11/22/2023. TECHNIQUE: AP pelvis and frog-leg lateral views of the left hip. FINDINGS: Total left hip arthroplasty in place, with femoral and acetabular components intact, well seated, in anatomic alignment. No evidence of periprosthetic fracture, loosening, or subsidence. Stable appearance from the prior exam. Moderate degenerative arthritis noted in the right hip joint, and bilateral SI joints. No soft tissue abnormalities. XR/XR hip LT min 2V IMPRESSION: 1. Total left hip arthroplasty without definite complication evident. Stable exam. 2. Moderate osteoarthritis right hip joint. Electronically signed by: Feliz Maher MD 11/05/2024 08:17 AM EDT
--- OUTSIDE RECORDS SUMMARY | 2024-11-05 10:11 | XMS_ITS ---
Author Name [facility] Organization Unknown Problems Problem Status Onset Date Problem Type Date of Resoluti on Source Rib sprain active EncounterDiagnosisAct [facility] Immunizations Vaccine Date Source Lot Number Status Covid-19 (Pfizer) Dilution Required 10/01/2020 [facility] [id number] completed Covid-19 (Pfizer) Dilution Required 11/03/2020 [facility] [id number] completed Encounters Encounter Type Encounter Reason Primary Diagnosis Location Date Emergency Sprain of ribs, initial encounter Sprain of ribs, initial encounter [facility] 04/13/2024 [facility] 03/22/2023 [facility] 03/22/2023 [facility] 03/22/2023 [facility] 03/22/2023 [facility] 03/22/2023 [facility] 03/21/2023 Care Team Organization Name Specialty Phone Email Start Date End Da te [facility] 04/16/2024 [facility] 04/13/2024 [facility]
--- OUTSIDE RECORDS SUMMARY | 2024-11-05 10:11 | XMS_ITS | Clinical Summary ---
Author Organization [facility] it Address [address] [place] [address] Care Team Providers Care Human Resource Officer Name Role Phone Maria Elena Rincon MD Primary Care Provider [phone] Social History Tobacco Use Types Packs/Day Years [...] Vaccines (1 of 2) 1993 RSV Immunization Adult Patients (1 - 1-dose 75+ series) 2018 COVID-19 [...] age to complete this topic Care Teams Human Resource Officer Relationship Specialty Start Date End Date Maria Elena Rincon MD [address] [place] [address] PCP - General Internal Medicine 10/01/20
--- OUTSIDE RECORDS SUMMARY | 2024-11-05 10:11 | XMS_ITS | Clinical Summary ---
Author Organization [facility] Address [address] [place] [address] Care Team Providers Care Strategic Planning Consultant Name Role Phone Maria Elena Rincon MD Primary Care Provider [phone] Allergies Active Allergy Reactions Criticality Noted Date Comments Ciprofloxacin 04/13/2024 Metronidazole 04/13/2024 Nitrofurantoin 04/13/2024 Oxybutynin 04/13/2024 Zoledronic Acid 04/13/2024 Simvastatin 04/13/2024 Medications No known medications Active Problems No known active problems Immunizations Name Administration Dates Next Due Covid-19 (Pfizer) Dilution Required 11/03/2020,0 10/01/2020 Social History Tobacco Use Types Packs/Day Years Used Date Smoking Tobacco: Unknown Tobacco Cessation:Counseling Given: Not Answered Sex and Gender Information Value Date Recorded Sex Assigned at Female 10/01/2020 9:55 AM EST Gender Identity Not on file Sexual Orientation Not on file Job Start Date Occupation Industry Not on file Not on file Not on file Last Filed Vital Signs Vital Sign Reading Time Taken Comments Blood Pressure 167/76 04/13/2024 3:42 PM EDT Pulse 68 04/13/2024 3:42 PM EDT Temperature 37.1 ??C (98.8 ??F) 04/13/2024 3:42 PM ED T Respiratory Rate 16 04/13/2024 3:42 PM EDT Oxygen Saturation 93% 04/13/2024 3:42 PM EDT Inhaled Oxygen Concentration - - Weight - - Height - - Body Mass Index - - Plan of Treatment Health Maintenance Due Date Last Done Comments Depression Screening 1955 Preventative Health Evaluation 1961 DTap / Tdap / Td (1 - Tdap) 1962 Shingrix-Zoster Vaccine (1 of 2) 1993 Fall Risk Assessment 2008 Osteoporosis Screening (DEXA Scan) 2008 Pneumococcal Vaccine (1 of 1 - PCV) 2008 RSV Adult > 60+ Yrs or (1 - 1-dose 75+ series) 2018 COVID-19 Vaccine ( season) 2024 06/02/2023, 05/09/2022, 07/08/2021, Additional history exists Influenza Vaccine (#1) 2024 , 05/09/2022, 04/22/2022, Additional history exists Hepatitis B Vaccines Aged Out No long er eligible based on patient's age to complete this topic RSV Ped < 20 months Aged Out No longe r eligible based on patient's age to complete this topic Care Teams Strategic Planning Consultant Relationship Specialty Start Date End Date Maria Elena Rincon MD [address] [place] [address] [address] [place] [address] PCP - General Internal Medicine 10/01/20
== END 2024-11-04 09:14 | disposition home or self-care (01) ==
LOC: HO.HOSX 09:13
PROVIDERS: Visit Provider Orthopaedic Surgery
DX: M25.552 Pain in left hip (principal); Z96.642 Presence of left artificial hip joint; M16.11 Unilateral primary osteoarthritis, right hip
CPT/HCPCS: 73502; 99212

== ENCOUNTER 2024-11-04 09:16 | Outpatient (AMB) | payer MEDICARE, OTHER, SELFPAY ==
[2024-11-04 09:22] VITALS: BMI 35.7
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
--- OUTSIDE RECORDS SUMMARY | 2024-11-04 10:19 | XMS_ITS | Clinical Summary ---
Author Organization [facility] it Address [address] [place] [address] Care Team Providers Care Air Cargo Ground Operations Supervisor Name Role Phone Maria Elena Rincon MD Primary Care Provider [phone] Social History Tobacco Use Types Packs/Day Years Used Date Smoking Tobacco: Unknown Comments Unknown Sex and Gender Information Value Date Recorded Sex Assigned at Not on file Legal Sex Female 12:05 AM EST Gender Identity Not on file Sexual Orientation Not on file Obstetrics History Plan of Treatment Health Maintenance Due Date Last Done Comments DTaP,Tdap,and Td Vaccines (1 - Tdap) 1962 Pneumococcal Vaccine: 50+ Years (1 of 1 - PCV) 1993 Zoster Vaccines (1 of 2) 1993 RSV Immunization Patients 60 + Years Old (1 - 1-dose 75+ series) 2018 COVID-19 Vaccine ( - 2023-2 5 season) 2024 11/03/2020, 10/01/2020 Influenza Vaccine (#1) 2024 Depression Screening 05/19/2024 Falls Risk Assessment 05/19/2024 Osteoporosis Screening (Bone Density Screening) 05/19/2024 Social Influencers of Health Screening 05/19/2024 HIB Vaccines Aged Out No longer eligi ble based on patient's age to complete this topic HPV Vaccines Aged Out No longer eligi ble based on patient's age to complete this topic Hepatitis A Vaccines Aged Out No long er eligible based on patient's age to complete this topic Hepatitis B Vaccines Aged Out No long er eligible based on patient's age to complete this topic IPV Vaccines Aged Out No longer eligi ble based on patient's age to complete this topic MMR Vaccines Aged Out No longer eligi ble based on patient's age to complete this topic Meningococcal ACWY Vaccine Aged Out N o longer eligible based on patient's age to complete this topic Meningococcal B Vacine Aged Out No lo nger eligible based on patient's age to complete this topic RSV Immunization Patients Under 20 months Aged Out No longer eligible b ased on patient's age to complete this topic Varicella Vaccines Aged Out No longer eligible based on patient's age to complete this topic Care Teams [employer] Ground Operations Supervisor Relationship Specialty Start Date End Date Maria Elena Rincon MD [address] [place] [address] PCP - General Internal Medicine 10/01/20
== END 2024-11-04 09:40 | disposition home or self-care (01) ==
LOC: HO.HOS 09:17
PROVIDERS: PCP Internal Medicine; Visit Provider Orthopaedic Surgery
DX: M25.552 Pain in left hip (principal); Z96.642 Presence of left artificial hip joint
CPT/HCPCS: 99213; G2211

== ENCOUNTER → 2024-11-04 09:20 | Outpatient (BNV) | payer MEDICARE, OTHER, SELFPAY | PROVIDERS: Visit Provider Radiology Diagnostic Radiology | DX: Z96.642 Presence of left artificial hip joint (principal) | CPT/HCPCS: 73502 ==

== ENCOUNTER 2025-04-22 08:24 | Outpatient (REF) | payer MEDICARE, OTHER, SELFPAY ==
--- NOTE | ~2025-04-22 | XR_ITS ---
EXAMINATION: XR PELVIS 1-2 VIEWS HISTORY: M25.559 - Pain in unspecified hip COMPARISON: Comparison is made with the prior examination dated 07/12/2023. FINDINGS: Two AP views of the pelvis are submitted. The bones are osteopenic. The patient is status post left total hip arthroplasty. The distal portion of the femoral stem component is excluded. There is no fracture or dislocation. There is moderate osteoarthritis of the right hip with joint space narrowing and osteophyte formation. There is degenerative change of the sacroiliac joints. There is calcification of the iliac arteries. XR/XR pelvis 1-2V IMPRESSION: 1. Status post left total hip arthroplasty. 2. Moderate osteoarthritis of the right hip. Electronically signed by: Joe Bonner MD 04/22/2025 10:24 AM EDT
--- OUTSIDE RECORDS SUMMARY | 2025-04-23 09:29 | XMS_ITS | Clinical Summary ---
Author Organization [facility] Address [address] [place] [address] Care Team Providers Care Pocket Machine Operator Name Role Phone Maria Elena Rincon [...] age to complete this topic Care Teams Pocket Machine Operator Relationship Specialty Start Date End Date Maria Elena Rincon MD [address] [place] [address] [address] [place] [address] PCP - General Internal Medicine 10/01/20
--- OUTSIDE RECORDS SUMMARY | 2025-04-23 09:29 | XMS_ITS | Clinical Summary ---
Author Organization [facility] it Address [address] [place] [address] Care Team Providers Care Auto Body Repairer Fiberglass Name Role Phone Maria Elena Rincon MD Primary Care Provider [phone] Social History Tobacco Use Types Packs/Day Years [...] age to complete this topic Care Teams Auto Body Repairer Fiberglass Relationship Specialty Start Date End Date Maria Elena Rincon MD [address] [place] [address] PCP - General Internal Medicine 10/01/20
== END 2025-04-22 08:25 | disposition home or self-care (01) ==
LOC: HO.HOSX 08:24
PROVIDERS: Visit Provider Orthopaedic Surgery
DX: M25.551 Pain in right hip (principal); M25.552 Pain in left hip; M53.3 Sacrococcygeal disorders, not elsewhere classified; Z96.642 Presence of left artificial hip joint
CPT/HCPCS: 72170; 99212

== ENCOUNTER 2025-04-22 10:00 | Outpatient (AMB) | payer MEDICARE, OTHER, SELFPAY ==
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
[2025-04-22 10:15] VITALS: BMI 35.2
--- OUTSIDE RECORDS SUMMARY | 2025-04-22 12:02 | XMS_ITS | Clinical Summary ---
Author Organization [facility] Address [address] [place] [address] Care Team Providers Care Clinical Nursing Professor Name Role Phone Maria Elena Rincon MD Primary Care Provider Allergies Active Allergy Reactions Criticality Noted Date [...] 68 04/13/2024 3:42 PM EDT Temperature 37.1 C (98.8 F) 04/13/2024 3:42 PM EDT Respiratory Rate 16 04/13/2024 3:42 PM EDT [...] 75+ series) 2018 COVID-19 Vaccine ( - season) 2025 06/02/2023, 05/09/2022, 07/08/2021, Additional history exists Influenza Vaccine (#1) 2025 , 05/09/2022, 04/22/2022, Additional history exists Hepatitis B Vaccines Aged Out No long er eligible based on patient's age to complete this topic RSV Ped < 20 months Aged Out No longe r eligible based on patient's age to complete this topic Care Teams Clinical Nursing Professor Relationship Specialty Start Date End Date Maria Elena Rincon MD [address] [place] [address] [address] [place] [address] PCP - General Internal Medicine 10/01/20
--- OUTSIDE RECORDS SUMMARY | 2025-04-22 12:02 | XMS_ITS ---
Author Name [facility] Organization Unknown Allergies Allergen Reaction Severity Comment Documented Date Source Statu s SIMVASTATIN 04/13/2024 [facility] active CIP[facility]FL[facility]ACIN [facility] METRONIDAZOLE [facility] NITROFURANTOIN [facility] OXYBUTYNIN [facility] ZOLEDRONIC ACID [facility] Problems Problem Status Onset Date Problem Type Date of Resoluti on Source Rib sprain active EncounterDiagnosisAct [facility] Immunizations Vaccine Date Source Lot Number Status Covid-19 (Pfizer) Dilution Required 11/03/2020 [facility] [id number] completed Covid-19 (Pfizer) Dilution Required 10/01/2020 [facility] [id number] completed Encounters Encounter Type Encounter Reason Primary Diagnosis Location Date Emergency Sprain of ribs, initial encounter Sprain of ribs, initial encounter [facility] 04/13/2024 Ambulatory [facility] [place] 03/22/2023 Ambulatory [facility] [place] 03[facility]22/2023 Ambulatory [facility] [place] 03/22/2023 Ambulatory [facility] [place] 03/22/2023 Ambulatory [facility] [place] 03/22/2023 Ambulatory [facility] [place] 03/21/2023 Care Team Organization Name Specialty Phone Email Start Date End [facility] te [facility] 04/16/2024 02/17/2025 [facility] 04/13/2024 [facility] Primary Care
--- OUTSIDE RECORDS SUMMARY | 2025-04-22 12:02 | XMS_ITS | Clinical Summary ---
Author Organization [facility] it Address [address] [place] [address] Care Team Providers Care Optical Glass Wet Inspector Name Role Phone Maria Elena Rincon MD Primary Care Provider [phone] Social History Tobacco Use Types Packs/Day Years [...] Patients (1 - 1-dose 75+ series) 2018 Falls Risk Assessment 05/19/2024 Osteoporosis Screening (Bone Density Screening) 05/19/2024 Social Influencers of Health Screening 05/19/2024 Depression Screening 08/06/2024 COVID-19 Vaccine (3 - 2024-2 6 season) 2025 11/03/2020, 10/01/2020 Influenza Vaccine (#1) 2025 HIB Vaccines Aged Out No longer eligi [...] age to complete this topic Meningococcal B Vaccine Aged Out No l onger eligible based on patient's age to complete this topic RSV Immunization Patients Under 20 months Aged Out No longer eligible b ased on patient's age to complete this topic Varicella Vaccines Aged Out No longer eligible based on patient's age to complete this topic Care Teams Optical Glass Wet Inspector Relationship Specialty Start Date End Date Maria Elena Rincon MD [address] [place] [address] PCP - General Internal Medicine 10/01/20
== END 2025-04-22 10:34 | disposition home or self-care (01) ==
LOC: HO.HOS 10:00
PROVIDERS: PCP Internal Medicine; Visit Provider Orthopaedic Surgery
DX: M25.551 Pain in right hip (principal); M25.552 Pain in left hip; M53.3 Sacrococcygeal disorders, not elsewhere classified; Z96.642 Presence of left artificial hip joint
CPT/HCPCS: 99213; G2211

== ENCOUNTER → 2025-04-22 10:03 | Outpatient (BNV) | payer MEDICARE, OTHER, SELFPAY | PROVIDERS: Visit Provider Radiology Diagnostic Radiology | DX: M16.11 Unilateral primary osteoarthritis, right hip (principal); Z96.642 Presence of left artificial hip joint | CPT/HCPCS: 72170 ==